=== PATIENT | female | born 2000 | race Two or more races ===

== ENCOUNTER 2018-03-16 01:57 | Emergency (ER) | payer MEDICAID ==
[~2018-03-16] VITALS: Ht 154.9 cm; Wt 58.0 kg
[2018-03-16] MEDS ORDERED: FAMOTIDINE 20MG/2ML VIAL IV STA (07:02)
[2018-03-16] MEDS ORDERED: METOCLOPRAMIDE HCL 10MG/2ML VIAL IV STA (07:02)
[2018-03-16] MEDS ORDERED: MAGNESIUM/ALUMINUM HYDROXIDE/SIMETHICONE 30ML UDC PO STA (07:02)
[2018-03-16 07:57] LABS: BASOPHILS % 0.4 % (0.0-2.0); EOSINOPHILS % 2.5 % (0.0-5.0); HEMATOCRIT. 38.2 % (36.0-48.0); HEMOGLOBIN. 12.6 g/dL (12.0-16.0); LYMPHOCYTES % 43.8 % (20.0-50.0); MEAN CORPUSCULAR VOLUME 84.8 fL (81.0-99.0); MEAN PLATELET VOLUME 8.8 fl (7.4-10.4); MONOCYTES % 9.3 % (2.0-8.0); PLATELET 234 x1000/uL (130-400); RED CELL DISTRIBUTION WIDTH 13.5 % (11.6-14.6)
[2018-03-16 07:59] LABS: CHLORIDE 107 mEq/L (98-107)
[2018-03-16 08:06] LABS: INR 1.1; PROTHROMBIN TIME 11.4 sec (9.1-11.1)
[2018-03-16 08:13] LABS: HCG SCREEN NEGATIVE
[2018-03-16 09:02] LABS: CLARITY URINE CLOUDY (CLEAR); COLOR URINE YELLOW (YELLOW); KETONES URINE 1+ (NEGATIVE); LEUKOCYTE ESTERASE URINE 1+ (NEGATIVE); NITRITE URINE NEGATIVE (NEGATIVE); OCCULT BLOOD URINE NEGATIVE (NEGATIVE); PROTEIN URINE NEGATIVE (NEGATIVE); SPECIFIC GRAVITY URINE 1.017 (1.005-1.030); UROBILINOGEN URINE 0.2 E.U./dL (0.2-1.0)
[2018-03-16 10:30] VITALS: BP 116/72
== END 2018-03-16 10:37 | disposition home or self-care (01) ==
LOC: ER 01:57
DX: N30.00 Acute cystitis without hematuria (principal); F17.210 Nicotine dependence, cigarettes, uncomplicated
CPT/HCPCS: 36415; 80053; 81003; 81025; 83690; 84703; 85025; 85610; 96374; 96375; 99283; J2765; J3490

== ENCOUNTER 2022-02-24 16:43 | Emergency (ER) | payer MEDICAID, OTHER ==
[~2022-02-24] VITALS: Ht 160 cm; Wt 58.0 kg
[2022-02-24 17:12] VITALS: BP 125/79
[2022-02-24] MEDS ORDERED: IBUP-1653 PO (17:15)
[2022-02-25] MEDS ORDERED: NAPR-681 PO (04:16)
[2022-02-25] MEDS ORDERED: D-ME473S50 PO (04:16)
[2022-02-25] MEDS ORDERED: CIPHCO RIGHT EAR (04:16)
== END 2022-02-25 04:47 | disposition home or self-care (01) ==
LOC: ER 16:43
DX: J06.9 Acute upper respiratory infection, unspecified (principal); H60.91 Unspecified otitis externa, right ear; T16.1XXA Foreign body in right ear, initial encounter; Z20.822 Contact with and (suspected) exposure to COVID-19; X58.XXXA Exposure to other specified factors, initial encounter; Y93.89 Activity, other specified; Y92.89 Other specified places as the place of occurrence of the external cause
CPT/HCPCS: 71045; 81025; 87426; 99284; C9803

== ENCOUNTER 2022-08-14 10:23 | Emergency (ER) | payer MEDICAID ==
[~2022-08-14] VITALS: Ht 154.9 cm; Wt 61.0 kg
[~2022-08-14 10:23] MED LIST: CIPHCO RIGHT EAR; D-ME473S50 PO; IBUP-1653 PO; NAPR-681 PO
[2022-08-14 10:30] VITALS: BP 110/70
[2022-08-14] MEDS ORDERED: ACETAMINOPHEN 325MG TABLET PO STA (10:36)
[2022-08-14 11:54] LABS: CLARITY URINE CLEAR (CLEAR); COLOR URINE YELLOW (YELLOW); KETONES URINE NEGATIVE (NEGATIVE); LEUKOCYTE ESTERASE URINE NEGATIVE (NEGATIVE); NITRITE URINE NEGATIVE (NEGATIVE); OCCULT BLOOD URINE NEGATIVE (NEGATIVE); PROTEIN URINE NEGATIVE (NEGATIVE); SPECIFIC GRAVITY URINE 1.018 (1.005-1.030); UROBILINOGEN URINE 0.2 E.U./dL (0.2-1.0)
[2022-08-14] MEDS ORDERED: TOPUD MT (12:19)
== END 2022-08-14 12:32 | disposition home or self-care (01) ==
LOC: ER 10:23
DX: M54.50 Low back pain, unspecified (principal)
CPT/HCPCS: 81003; 81025; 99283